=== PATIENT | female | born 1985 | race Two or more races ===

== ENCOUNTER 2018-01-16 15:27 | Emergency (ER) | payer MEDICAID ==
[~2018-01-16] VITALS: Ht 162.6 cm; Wt 60.0 kg
[2018-01-16 17:45] VITALS: BP 115/70
[2018-01-16] MEDS ORDERED: IBUPROFEN 600MG TABLET PO ONE (17:45)
[2018-01-16] MEDS ORDERED: CYCLOBENZAPRINE 10MG TABLET PO ONE (20:30)
== END 2018-01-16 22:10 | disposition home or self-care (01) ==
LOC: ER 17:57
DX: S02.2XXA Fracture of nasal bones, initial encounter for closed fracture (principal); R51 Headache; M54.2 Cervicalgia; R07.89 Other chest pain; M25.551 Pain in right hip; V49.49XA Driver injured in collision with other motor vehicles in traffic accident, initial encounter; Y93.89 Activity, other specified; Y92.410 Unspecified street and highway as the place of occurrence of the external cause
CPT/HCPCS: 70450; 70486; 71111; 72125; 73502; 81025; 99284

== ENCOUNTER 2024-09-21 00:35 | Emergency (ER) | payer MEDICAID, OTHER ==
[~2024-09-21] VITALS: Ht 162.6 cm; Wt 57.0 kg
[2024-09-21 00:41] VITALS: BP 145/90; PULSE 74; RESP 18; TEMP 36.6; O2SAT 100
[2024-09-21 05:07] LABS: CHLORIDE 108 mEq/L (98-107); POTASSIUM 3.3 mEq/L (3.5-5.1); SODIUM 143 mEq/L (136-145)
[2024-09-21 05:08] LABS: CALCIUM 9.9 mg/dL (8.7-10.4); CARBON DIOXIDE 26 mEq/L (21-32)
[2024-09-21 05:13] LABS: BASOPHILS % 0.2 % (0.0-2.0); CREATININE 0.6 mg/dL (0.6-1.0); EOSINOPHILS % 0.1 % (0.0-5.0); GLUCOSE 100 mg/dL (70-105); HEMATOCRIT. 37.1 % (36.0-48.0); HEMOGLOBIN. 12.4 g/dL (12.0-16.0); LYMPHOCYTES % 10.2 % (20.0-50.0); MEAN CORPUSCULAR HGB CONC 33.3 g/dL (31.0-37.0); MEAN CORPUSCULAR VOLUME 96.1 fL (81.0-99.0); MEAN PLATELET VOLUME 9.5 fl (7.4-10.4); MONOCYTES % 5.2 % (2.0-8.0); NEUTROPHILS % 84.3 % (40.0-76.0); PLATELET 273 x1000/uL (130-400); RED BLOOD CELL COUNT 3.87 mill/uL (4.2-5.4); RED CELL DISTRIBUTION WIDTH 13.8 % (11.6-14.6); WHITE BLOOD COUNT 7.3 x1000/uL (4.5-11.0)
[2024-09-21 05:14] LABS: UREA NITROGEN BLOOD 8 mg/dL (9-23)
[2024-09-21 05:15] LABS: ALANINE AMINOTRANSFERASE 16 IU/L (10-49); ALBUMIN 4.3 g/dL (3.2-4.8); ASPARTATE AMINOTRANSFERASE 33 IU/L (<34); BILIRUBIN DIRECT 0.2 mg/dL (<=3.0)
[2024-09-21 05:16] LABS: BILIRUBIN TOTAL 0.5 mg/dL (0.1-1.0); PROTEIN TOTAL 7.4 g/dL (6.0-8.3)
[2024-09-21] MEDS ORDERED: ONDA-239 PO (06:21)
[2024-09-21] MEDS ORDERED: AZIT250T12 MT (06:21)
[2024-09-21] MEDS: POTASSIUM CHLORIDE 20MEQ TABLET SR PO NR (06:31)
[2024-09-21] MEDS: AZITHROMYCIN 500 MG TABLET PO NR (06:31)
[2024-09-21] MEDS: ONDANSETRON 4MG ODT PO NR (06:31)
== END 2024-09-21 06:38 | disposition home or self-care (01) ==
LOC: ER 00:35
DX: R05.9 Cough, unspecified (principal)
CPT/HCPCS: 99284; 71045; 80076; 80048; 83690; 85025; 36415; Q0162